=== PATIENT | female | born 1950 | race Hispanic/Latino ===

== ENCOUNTER 2023-09-22 15:29 | Emergency (ER) | payer MEDICARE ==
[~2023-09-22] VITALS: Ht 152.4 cm; Wt 52.2 kg
[2023-09-22] MEDS: DIPH,PERTUSS(ACELL),TET VAC/PF 0.5 ML VIAL IM ONE (17:06)
[2023-09-22] MEDS: LIDOCAINE HCL 1% 20 ML VIAL MISC SCH (17:35)
[2023-09-22 17:48] VITALS: BP 152/86; PULSE 88; RESP 16; O2SAT 99
== END 2023-09-22 17:51 | disposition home or self-care (01) ==
LOC: EDH 15:29
DX: S01.112A Laceration without foreign body of left eyelid and periocular area, initial encounter (principal); Z90.710 Acquired absence of both cervix and uterus; W01.0XXA Fall on same level from slipping, tripping and stumbling without subsequent striking against object, initial encounter; Y93.89 Activity, other specified; Y92.89 Other specified places as the place of occurrence of the external cause; Y99.8 Other external cause status
CPT/HCPCS: 12013; 70450; 90471; 90715